=== PATIENT | male | born 1950 | race Caucasian/White ===

== ENCOUNTER → 2016-09-03 | Outpatient (CLI) | payer MEDICARE ==
[2015-11-01 12:05] VITALS: BP 145/99
[~2016-09-03] MED LIST: ASPI81TA2 PO; COSAMIN DS CAP1 EACH PO; FLUO20CA8 PO; HYDR12.53 PO; LISI-338 PO; MOME13HF2 IH; MULT-658 PO; OMEP20TA63 PO; TIOT18CA IH
--- NOTE | 2016-09-03 10:01 | RAD ---
Hepatic ultrasound, 09/03/2016: History: Probable hepatic a meningioma The liver was carefully scanned. The gallbladder is surgically absent. The liver is more echogenic than normal in a diffuse pattern. This is most commonly due to fatty change. A 3.2 cm area of relatively increased echogenicity is seen inferiorly in the right lobe of the liver. Its margins are not clearly defined. A recent outside CT study, which is not currently available for direct comparison, described a possible hemangioma in this region. Increased echogenicity in this lesion is compatible with a hemangioma, but not diagnostic. No other hepatic lesion is identified. No bile duct dilatation is seen. IMPRESSION: 1. Generalized increased hepatic echogenicity suggesting fatty change. 2. Small hyperechoic mass in the right lobe of the liver compatible with a hemangioma. CT or sonographic follow-up is suggested to confirm stability.
== END | disposition home or self-care (01) ==
LOC: US 06:37
PROVIDERS: ATTEND Family Medicine
DX: D18.03 Hemangioma of intra-abdominal structures (principal)
CPT/HCPCS: 76705

== ENCOUNTER → 2019-02-10 | Outpatient (CLI) | payer MEDICARE ==
[2015-11-01 12:05] VITALS: BP 145/99
[~2019-02-10] MED LIST changes: +ASPI-630 PO; -ASPI81TA2 PO; -HYDR12.53 PO; +HYDR12.575 PO
--- NOTE | 2019-02-10 15:10 | RAD ---
Examination: CT chest with low dose protocol without contrast HISTORY: History of tobacco abuse, lung screening COMPARISON: 09/14/2015 TECHNIQUE: Axial CT images of the chest were performed without contrast. Coronal and sagittal reformats are performed Exposure: One or more of the following individualized dose reduction techniques were utilized for this examination: 1. Automated exposure control 2. Adjustment of the mA and/or kV according to patient size 3. Use of iterative reconstruction technique FINDINGS: The central airways are patent. The heart size grossly appears unremarkable. Mild coronary artery calcifications. Mild bilateral lung emphysematous changes. No obvious nodules identified. No evidence of pleural effusion or pneumothorax The visualized noncontrasted liver, spleen, adrenals grossly appears unremarkable. Cystic structure identified in the right kidney measuring 5.8 cm. A 2.3 cm cystic structure identified in the left kidney. Mild degenerative changes thoracic spine IMPRESSION: 1. No obvious pulmonary nodules identified. Continued follow-up is recommended in 12 months. 2. Mild lung emphysematous changes. 3. Coronary artery calcifications. 4. 5.8 cm cystic structure identified in the right kidney and a 2.3 cm cystic structure identified in the left kidney probably cysts. Electronically signed by: Truman Shannon MD (02/10/2019 3:07 PM) [id number]
== END | disposition home or self-care (01) ==
LOC: CT 10:06
PROVIDERS: ATTEND Family Medicine
DX: Z12.2 Encounter for screening for malignant neoplasm of respiratory organs (principal); J43.9 Emphysema, unspecified; I25.10 Atherosclerotic heart disease of native coronary artery without angina pectoris; M47.814 Spondylosis without myelopathy or radiculopathy, thoracic region; Z87.891 Personal history of nicotine dependence
CPT/HCPCS: G0297